=== PATIENT | female | born 1995 | race Caucasian/White ===

== ENCOUNTER 2016-12-18 02:22 | Emergency (ER) | payer OTHER ==
[~2016-12-18 02:22] MED LIST: BACTRIM DS TABL1 TA2 PO
== END 2016-12-18 02:48 | disposition home or self-care (01) ==
LOC: SED 02:22
DX: L02.31 Cutaneous abscess of buttock (principal); F17.200 Nicotine dependence, unspecified, uncomplicated; Z88.0 Allergy status to penicillin; Z88.1 Allergy status to other antibiotic agents
CPT/HCPCS: 10060; 87070; 87077; 87186; 87205; 99283